=== PATIENT | male | born 1940 | race Caucasian/White ===

== ENCOUNTER 2018-06-14 13:41 | Emergency (ER) | payer MEDICARE, BC ==
--- NOTE | 2018-06-14 14:10 | Emergency Department Record ---
History of Present Illness - General Chief Complaint: Rapid heartbeat Stated Complaint: RAPID HEART RATE,HIGH BP AND CHILLS Time Seen by Provider: 06/14/18 13:57 Source: Patient Mode of Arrival: Ambulatory Limitations: No limitations - History of Present Illness Initial Comments: The patient is here due to not feeling well for 3 days. He has noticed his BP has been elevated in the evening and he becomes very concerned if the bottom number is over 90. Due to that he has been feeling anxious about it and also has noticed his heart beats have been stronger recently. There has been no reported fever, CP, SOB, arm pain, LEVON, SOB, or sweating. The patient is on multiple medicines for HTN and does see his PCP regularly for it. MD Complaint: Rapid heart beat Onset/Timin -: Days(s) Context: Occurred during rest Associated Symptoms: Denies other symptoms - Related Data Home Medications Medication Instructions Recorded Confirmed Last Taken Arginine [l-Arginine] 1,000 mg PO DAILY 06/14/18 06/14/18 Unknown Hydrochlorothiazide [Hctz 12.5MG] 12.5 mg PO DAILY 06/14/18 06/14/18 Unknown Metformin HCl 250 mg PO BID 06/14/18 06/14/18 Unknown Allergies Allergy/AdvReac Type Severity Reaction Status Date / Time sulfamethoxazole Allergy HIVES Verified 06/14/18 13:54 [From Bactrim] trimethoprim [From Bactrim] Allergy HIVES Verified 06/14/18 13:54 Travel Screening - Travel/Exposure Within Last 30 Days Have you traveled within the last 30 days?: No Review of Systems Constitutional: Denies: Chills, Fever Eyes: Denies: Eye discharge ENT: Denies: Congestion Respiratory: Denies: Cough, Dyspnea Cardiovascular: Denies: Chest pain Endocrine: Denies: Fatigue Gastrointestinal: Denies: Nausea Genitourinary: Denies: Dysuria Musculoskeletal: Denies: Arthralgia Skin: Denies: Bruising Past Medical History - SOCIAL HISTORY Smoking Status: Never smoker Alcohol Use: None Drug Use: None - RESPIRATORY Hx Respiratory Disorders: No - CARDIOVASCULAR Hx Cardio Disorders: Yes Hx Hypertension: Yes - NEURO Hx Neuro Disorders: Yes Hx Dizziness: Yes - GI Hx GI Disorders: No - Hx Genitourinary Disorders: Yes Hx Prostate Problems: Yes - ENDOCRINE Hx Endocrine Disorders: No - MUSCULOSKELETAL Hx Musculoskeletal Disorders: No - PSYCH Hx Psych Problems: No - HEMATOLOGY/ONCOLOGY Hx Hematology/Oncology Disorders: No Family Medical History Any Significant Family History?: No Physical Exam - General General Appearance: Alert, Oriented x3, Cooperative, No acute distress - Head Head exam: Atraumatic, Normocephalic, Normal inspection - Eye Eye exam: Normal appearance, PERRL, EOMI - Neck Neck exam: Normal inspection, Full ROM. negative: Tenderness - Respiratory Respiratory exam: Normal lung sounds bilaterally. negative: Respiratory distress - Cardiovascular Cardiovascular Exam: Regular rate, Normal rhythm, Normal heart sounds - GI/Abdominal GI/Abdominal exam: Soft, Normal bowel sounds. negative: Tenderness - Extremities Extremities exam: Normal inspection, Full ROM, Normal capillary refill. negative: Tenderness - Neurological Neurological exam: Alert, Normal gait. negative: Abnormal gait, Motor sensory deficit Course Vital Signs 06/14/18 13:50 Temperature 97.8 F Pulse Rate 76 Respiratory 18 Rate Blood Pressure 157/100 Pulse Ox 100 - Reevaluation(s) Reevaluation #1: The patient is doing very well at this time. His BP is MUCH improved after he basically just relaxed. I did discuss the normal lab results and the need to F/ U with his PCP next week. 06/14/18 15:04 Medical Decision Making - Data Complexity MDM Data: Labs Ordered and/or Reviewed, EKG Ordered and/or Reviewed - Lab Data Result diagrams: 06/14/18 14:07 06/14/18 14:07 - EKG Data -: EKG Interpreted by Me EKG: No Acute Changes (1st degree AV block. neg ST-T changes.) Disposition Disposition: Discharge Clinical Impression: Hypertension Qualifiers: Hypertension type: unspecified Qualified Code(s): I10 - Essential (primary) hypertension Disposition: Home, Self-Care Condition: (2) Stable Instructions: Hypertension (ED) Additional Instructions: Please continue your regular medicines and please continue to monitor your BP. Please see Dr. Dowd next week as planned and please return to the ER for any worsening symptoms. Forms: Patient Portal Access Time of Disposition: 15:07 Quality - Quality Measures Quality Measures: N/A - Blood Pressure Screening View Details: Yes Does Patient Have Any of the Following: Active Dx of HTN Blood Pressure Classification: Hypertensive Reading Systolic Measurement: 157 Diastolic Measurement: 100 Screening for High Blood Pressure: Patient Exclusion, Hx of HTN [[id number]]
[2018-06-14 14:33] LABS: BASO % 0.3 % (0-6); HEMATOCRIT 42.9 % (42.0-52.0); HEMOGLOBIN 15.2 gm/dl (14.0-18.0); LYMPH % 25.2 % (16-45); MEAN CELL VOLUME 94.3 fl (81-97); MEAN CORPUSCULAR HEMOGLOBIN 33.4 pg (27-33); MEAN CORPUSCULAR HGB CONC 35.4 g/dl (32-36); MEAN PLATELET VOLUME 9.9 fl (7.4-10.4); MONO % 8.5 % (0-9); PLATELET COUNT 140 K/uL (130-400); RED BLOOD COUNT 4.55 M/uL (4.40-5.70); RED CELL DISTRIBUTION WIDTH 12.2 % (11.5-14.5); WHITE BLOOD COUNT W/O DIFF 7.2 K/uL (4.2-12.2)
[2018-06-14 14:55] LABS: CKMB 1.9 ng/mL (<6.73); CREATINE PHOSPHOKINASE 92 U/L (39-308)
== END 2018-06-14 15:24 | disposition home or self-care (01) ==
LOC: ER 13:41
DX: I10 Essential (primary) hypertension (principal); E11.9 Type 2 diabetes mellitus without complications; E78.00 Pure hypercholesterolemia, unspecified; N40.0 Benign prostatic hyperplasia without lower urinary tract symptoms; Z00.00 Encounter for general adult medical examination without abnormal findings
CPT/HCPCS: 80048; 80061; 82550; 82553; 83036; 84450; 84460; 84484; 85025; 93005; 93010; 99284